=== PATIENT | male | born 1985 | race Caucasian/White ===

== ENCOUNTER 2019-05-18 16:46 | Emergency (ER) | payer OTHER, BC, SELFPAY ==
[2019-05-18 16:49] VITALS: BP 129/75; PULSE 95; RESP 18; TEMP 36.7; O2SAT 97
--- NOTE | 2019-05-18 16:51 | ED.GENADUL_ITS ---
Discharge Plan Disposition Patient Disposition: HOME Condition: Fair Discharge Details Chief Complaint: RespSymp Clinical Impression: Pneumonia, Hernia Primary Care Provider: None,None ED Provider: Juliana Persaud Home Meds and New Rx's Prescriptions: New doxycycline hyclate 100 mg capsule 100 mg PO BID Qty: 14 RF: 0 Discharge Instructions Instructions: Doxycycline (By mouth), Pneumonia (ED) Additional Instructions: Encourage hydration. Tylenol and/or Ibuprofen as needed for discomfort. Encourage deep breathing. Please take Doxycycline as prescribed. Even if symptoms improve, please take the entire course. If you develop increased shortness of breath, difficulty breathing, fevers or other new/worsening symptoms please seek care urgently once again. In regard to the swelling on your abdomen, this is most concerning for an inguinal hernia, you will need follow up with general surgery. If you develop increased/persistent pain, redness, fevers or other new/worsening symptoms please seek care urgently once again. Our director of career services will call you regarding establishing primary care and referral for general surgery. Medical Decision Making Patient is a 34-year-old male presents today with chief complaint of shortness of breath. States that this is been going on for the past 2 weeks. Reports is worse when he is laying supine or when he sitting down. Symptoms resolve when he is upright and moving. Reports it is on the right side and indicates inferior aspect of his rib cage is area where something is stabbing me when a breathing. He reports he was seen at [facility] emergency department yesterday at which time a chest x-ray was performed and per his report, no acute pathology was noted. Patient is an active smoker and smokes 1/2 packs of cigarettes daily. States that he did have subjective fevers a few days ago. Reports one episode of hemoptysis last week. Has not had any fevers or hemopt ysis since that time. No recent travel. Denies any personal or familial history of coagulopathy. No leg pain. Patient is also endorsing pain in the left side of his groin. States that he has had discomfort in this area, particularly when exerting himself or lifting, for quite some time. However, noted a area of swelling in this area today. No acute change in his pain. Obtain the notes from [facility]. It feels that his discomfort is likely musculoskeletal. Two-view chest x-ray was obtained. Showed the lungs are well-inflated and clear. No pneumothorax or pleural effusion detected. The cardiac silhouette is within normal limits. Normal spinal alignment. No osseous abnormalities detected.. Patient is slightly tachycardic at 95. His lungs are clear on exam. Appears nontoxic. He has no pain with ROM or palpation, does not seem consistent with muscular discomfort. As there has been no real increase in his cough, only brief episode of subjective fevers, symptoms are not really consistent with pneumonia. With hemoptysis and pain, plan for evaluation with a d-dimer as I did consider pulmonary embolism but do find this unlikely given age and risk factors. He had a x-ray yesterday with no acute on normalities, do not feel that reimaging the patient is appropriate at this time. I did encourage smoking cessation. On exam, the swelling he was endorsing on the left side of his groin is consistent with an inguinal hernia. No evidence to suggest incarceration or emergent pathology associated with this. Advised that this may be followed up with general surgery. Patient does not have a primary care and would like to follow-up with general surgery at [facility]. We will asked her director of career services help facilitate follow-up with primary care. D-dimer is elevated at 2211, will move forward with CT for PE. FINDINGS: Pulmonary arteries: Normal. No pulmonary emboli. Aorta: Unremarkable. No aortic aneurysm. No aortic dissection. Lungs: There is a focal air space consolidation in the right lower lobe. Remainder of the lungs are clear. Pleural space: Unremarkable. No pneumothorax. No pleural effusion. Heart: Unremarkable. No cardiomegaly. No pericardial effusion. Lymph nodes: Unremarkable. No enlarged lymph nodes. Bones/joints: Unremarkable. No acute fracture. Soft tissues: Unremarkable. Other findings: The visualized intra-abdominal structures demonstrate no acute findings. IMPRESSION: 1. No evidence of pulmonary emboli. 2. Focal air space consolidation in the right lower lobe favors infectious pneumonia in the appropriate clinical setting. Discussed this finding with the patient. He will be started on Doxycycline, dosing for tonight and tomorrow morning will be given. I advised f/u with PCP for reevaluation. Again, encouraged smoking cessation. He was given strict return precautions. Also discussed worsening symptoms of hernia that should prompt urgent evaluation once again. All of his questions and concerns were addressed, he is in agreement iwth this plan. HPI General Mode of arrival: ambulatory . Date/Time Provider Initiated Documentation: 05/18/19 16:51 . Limitations to Documentation: no limitations . Information obtained by: patient, family ( and daughter) and RN notes reviewed . History of Present Illness 34 year old M presents to the emergency department with the chief complaint of SOB and right lower chest wall pain, described as severe, with intensity rated at 9. Quality is described as aching, and is localized to the chest. Patient reports no radiation. Patient started experiencing this week(s) (2) and it has been constant. Movement improves symptom(s), (upright and walking) Rest worsens symptoms (laying supine) . Patient notes cough (reports chronic smokers cough, has slightly increased and had 1 episode of hemoptysis) and shortness of breath; denies diaphoresis, fever/chills, loss of appetite, nausea/vomiting, rash, syncope and weakness. Patient did receive the following treatments prior to arrival, none Related Data Home Medications Medication Instructions Recorded Confirmed doxycycline hyclate 100 mg PO BID #14 cap 05/18/19 Previous Rx's Medication Instructions Recorded doxycycline hyclate 100 mg PO BID #14 cap 05/18/19 Allergies Allergy/AdvReac Type Severity Reaction Status Date / Time No Known Allergies Allergy Unverified 05/18/19 16:52 Review of Systems Constitutional Constitutional: Reports as per HPI, Denies chills, Denies fever(s), Denies headache(s), Denies lethargy and Denies poor appetite Eyes Eyes: Denies change in vision ENT Ears, Nose, Mouth, and Throat: Denies dizziness and Denies headache(s) Cardiovascular Cardiovascular: Reports as per HPI, Reports chest pain at rest (right sided chest wall pain), Denies chest pain with activity, Denies syncope, Denies pedal edema, Denies edema, Denies leg edema, Denies lightheadedness, Denies radiating jaw, neck or arm pain, Denies palpitations, Reports dyspnea and Denies dyspnea on exertion Respiratory Respiratory: Reports as per HPI, Denies chest congestion, Denies cough, Denies pain on inspiration, Denies pain with cough, Reports dyspnea, Denies dyspnea on exertion and Denies wheezing Gastrointestinal Gastrointestinal: Reports as per HPI, Reports abdominal pain (left groin swelling and discomfort with exertion), Denies diarrhea, Denies nausea and Denies vomiting Genitourinary Genitourinary: Denies system reviewed and no additional complaints, except as docu (denies change in urinary habits), Denies genital pain, Denies flank pain, Denies scrotal swelling, Denies testicular mass and Denies testicular pain Musculoskeletal Musculoskeletal: Reports as per HPI and Denies back pain Integumentary/Breasts Skin/Breast: Reports as per HPI and Denies rash Neurologic Neurologic: Reports as per HPI, Denies dizziness, Denies syncope and Denies headache(s) Endocrine Endocrine: Denies palpitations Allergic/Immunologic Allergic/Immunologic: Denies wheezing [facility] Social History Smoking/Tobacco Use Status: Current every day Drug use: Never Do you feel safe at home: Yes Exam Const General: cooperative, healthy appearing, comfortable, no acute distress and well developed Nutritional Appearance: average body habitus and well nourished Orientation: alert, awake and oriented x3 HENMT Head: normal to inspection Ears: hearing grossly normal bilaterally Mouth: moist mucous membranes Chest Chest: normal inspection of the chest, normal palpation of entire chest wall, no crepitus, no localized rib tenderness and no tenderness Resp Effort & Inspection: normal respiratory effort, able to speak in complete sentences and no respiratory distress Auscultation: clear to auscultation bilaterally, no rales, no rhonchi and no wheezes Cardio Rate: regular rate Rhythm: regular rhythm Heart Sounds: S1 normal and S2 normal GI Inspection: no edema, non-distended and visible herniation (left inguinal area of swelling, soft and reducible) Palpation: soft, no hepatosplenomegaly, not firm, no guarding, not rigid and nontender Auscultation: normal bowel sounds Back/Spine/Pelvis Back: no CVA tenderness Thoracic/Lumbar Spine: thoracic and lumbar spine normal to inspection, thoraco- lumbar ROM normal, No mass, No pain with thoraco-lumbar ROM, No paraspinal tenderness and No thoraco-lumbar ROM limited Skin General skin exam: no rashes or lesions noted Trauma: no lacerations or abrasions Neuro General: alert, awake and oriented x3 Cognition: normal cognition Speech: speech normal Gait: normal gait Extrem General: normal to inspection, normal capillary refill, no pedal edema, no calf tenderness and normal gait Psych Appearance: grossly normal and well kempt Mental Status: mental status grossly normal Speech and Movement: speech and movement normal
[2019-05-18 17:50] LABS: HCT 41.2 % (40.0-50.0); HGB 14.2 g/dL (13.5-17.5); Mean Corp. HGB Concentration 34.5 g/dL (32.0-36.0); Mean Corpuscular Volume 92.8 fL (80-95); Mean Platelet Volume 8.9 fL (8.0-11.0); Platelet Count 395 x1000/uL (130-400); RBC 4.44 m/cumm (4.50-6.00); RBC Distribution Width 12.5 % (11.8-14.1); White Blood Cell Count 7.71 k/cumm (4.4-10.8)
[2019-05-18 18:11] LABS: ALT 56 U/L (16-63); AST 21 U/L (15-37); Albumin 3.8 g/dL (3.4-5.0); Alkaline Phosphatase 75 U/L (46-116); Anion Gap 9.7 mmol/L (3-11); BUN 24 mg/dL (7-18); Bilirubin, Total 0.5 mg/dL (0.2-1.0); CO2 27.3 mmol/L (21.0-32.0); CREATININE 0.88 mg/dL (0.70-1.30); Calcium 9.1 mg/dL (8.5-10.1); Chloride 103 mmol/L (98-107); Glucose 91 mg/dL (70-100); Potassium 3.8 mmol/L (3.5-5.1); Sodium 140 mmol/L (136-145); Total Protein 7.9 g/dL (6.4-8.2)
[2019-05-18 18:15] LABS: D-Dimer 2211 ng/mlFEU (<500)
[2019-05-18] MEDS: Normal Saline 1,000 ML 1000 ML IV (18:53)
[2019-05-18] MEDS: Normal Saline Flush 10 ML SYR IVP (18:53)
[2019-05-18 18:54] LABS: INR 1.1 (0.9-1.1); PTT Activated 29.9 sec (21.0-31.4); Prothrombin Time 11.2 sec (9.3-11.0)
--- NOTE | 2019-05-18 19:19 | DI.CT_ITS ---
EXAM: CT CHEST PE CTA CLINICAL HISTORY: elevated d-dimer, right lower chest wall pain, SOB TECHNIQUE: Post IV contrast during maximum okay opacification of the pulmonary arteries. COMPARISON: No exams were available for comparison FINDINGS: No pulmonary emboli or aortic dissection is seen. The heart size is normal. No adenopathy, pleural or pericardial effusion is seen. There is an area of airspace consolidation seen posteriorly in the right lower lobe near the diaphragm. The remainder of the lung whitman are clear. The visualized po rtions of the upper abdomen are unremarkable. IMPRESSION: Right lower lobe infiltrate. No evidence of pulmonary emboli.
[2019-05-18] MEDS: Omnipaque 350 MG/ML 100 ML BTL IJ (19:38)
--- NOTE | 2019-05-18 19:53 | DI.VRAD_ITS ---
PROCEDURE INFORMATION: Exam: CT Angiography Chest With Contrast Exam date and time: 05/18/2019 6:30 PM Clinical history: 34 years old, male; Shortness of breath and other: RT lower chest pain, elevated d-dimer TECHNIQUE: Imaging protocol: Computed tomographic angiography of the chest with intravenous contrast. 3D rendering: MIP reconstructed images were created and reviewed. Radiation optimization: All CT scans at this facility use at least one of these dose optimization techniques: automated exposure control; mA and/or kV adjustment per patient size (includes targeted exams where dose is matched to clinical indication); or iterative reconstruction. Contrast material: [id number]; Contrast volume: 80 ml; Contrast route: IV RAC 18G; COMPARISON: No relevant prior studies available. FINDINGS: Pulmonary arteries: Normal. No pulmonary emboli. Aorta: Unremarkable. No aortic aneurysm. No aortic dissection. Lungs: There is a focal air space consolidation in the right lower lobe. Remainder of the lungs are clear. Pleural space: Unremarkable. No pneumothorax. No pleural effusion. Heart: Unremarkable. No cardiomegaly. No pericardial effusion. Lymph nodes: Unremarkable. No enlarged lymph nodes. Bones/joints: Unremarkable. No acute fracture. Soft tissues: Unremarkable. Other findings: The visualized intra-abdominal structures demonstrate no acute findings. IMPRESSION: 1. No evidence of pulmonary emboli. 2. Focal air space consolidation in the right lower lobe favors infectious pneumonia in the appropriate clinical setting. Dictated and Authenticated by: Marv Meredith MD. Ordering:SUSY Andrews MD
[2019-05-18 20:22] VITALS: BP 106/74; PULSE 84; RESP 20; TEMP 37.3; O2SAT 98
[2019-05-18] MEDS: Doxycycline Hyclate 100 MG CAP PO ×2 (20:26)
== END 2019-05-18 20:30 | disposition home or self-care (01) ==
PROVIDERS: Emergency Provider Physician Assistant
DX: J18.9 Pneumonia, unspecified organism (principal); K40.90 Unilateral inguinal hernia, without obstruction or gangrene, not specified as recurrent; F17.210 Nicotine dependence, cigarettes, uncomplicated
CPT/HCPCS: 71275; 80053; 85027; 96360; 96361; 99285; 85379; 85610; 85730; 99284; J3490

== ENCOUNTER 2019-06-03 11:10 | Outpatient (CLI) | payer OTHER, BC, SELFPAY ==
--- NOTE | 2019-06-03 10:47 | DI.RAD_ITS ---
EXAM: XR CHEST 2V PA LATERAL CLINICAL HISTORY: still having some intermittent sharp pain, Z87.01, h/o becterial pneumonia,. TECHNIQUE: 2D digital imaging was performed. COMPARISON: CT CHEST PE CTA from 05/18/2019 FINDINGS: LUNGS: Clear. No pleural abnormality seen. HEART: Normal. MEDIASTINUM: Normal. OTHER FINDINGS:Normal. IMPRESSION: No acute pulmonary findings.
== END 2019-06-03 11:30 ==
PROVIDERS: Visit Provider Surgery
DX: Z87.01 Personal history of pneumonia (recurrent) (principal); R07.89 Other chest pain
CPT/HCPCS: 71046

== ENCOUNTER 2019-06-08 07:51 | Day surgery (SDC) | payer OTHER, BC, SELFPAY ==
[2019-06-08] VITALS (8 sets, daily range): BP systolic 80–116; BP diastolic 44–79; PULSE 54–112; RESP 12–18; TEMP 36–36.8; O2SAT 96–100
--- NOTE | 2019-06-08 06:37 | W.PM.OP ---
Date of service: 06/08/19 Time of Service: 09:38 Operative Note Operative Note DATE OF PROCEDURE: 06/08/19 PRE-OP DIAGNOSIS: Left inguinal hernia POST-OP DIAGNOSIS: same PROCEDURE: Left inguinal hernia repair with mesh SURGEON: Mona Lyons SALESPERSON USED CARS: Lilo Stokes ANESTHESIA: GETA and regional PATHOLOGY: none sent COMPLICATIONS: None Patient was transported to: PACU Patient's condition: stable Implants: Medium Bard Mesh Perfix Plug [id number] [id number] LOT [id number] Exp 2021-09-16 Indications: Mr. Dejesus is a pleasant 34 year old male who was seen in the office for a left inguinal hernia which happened at work when lifting some heavy reels of wire. Risks, benefits and complications have been reviewed. Complications include but are not limited to bleeding, infection, injury to vas, vessels and nerves, injury to bowel and adverse reaction to medications. Questions were entertained and answered to their satisfaction and they wished to proceed. Findings: Small indirect inguinal hernia and medium direct hernia Procedure Description: After informed consent was obtained the patient was taken to the operating room and placed in a supine position. Monitors and SCDs were applied and a timeout was done. The patient's name, date of , procedure type, procedure site, allergies to medications, preoperative antibiotic, and DVT prophylaxis were all reviewed. Fire risk was assessed. Next anesthesia did a tap block on the left side under ultrasound guidance. Please see their separate dictation. Once anesthesia was done the abdomen was prepped and draped in a sterile surgical fashion. 1% lidocaine was injected into the dermis in the left lower quadrant. An incision was made with a 10 blade in the left lower quadrant. Dissection was done with cautery through the subcutaneous tissues and Cj's fascia down to the external oblique fascia. The external ring was identified and the external oblique fascia was opened sharply through the external ring. The cut fascia was grasped with hemostats the cord structures were identified and a Jonathon drain was placed around them. The cremasteric muscle was dissected away from the cord structures using both cautery and blunt dissection. A small hernia sac was identified and removed from the cord structures using blunt dissection. The hernia sac was pushed back into the peritoneum. The ilioinguinal nerve was identified and cut. A medium prefix plug was then placed into the indirect defect and sutured in place with 2-0 proline. A medium flat mesh was then attached to the lacunar ligament using a 2-0 Prolene double armed suture. The mesh was secured laterally and medially with a 2-0 Prolene, with a running suture. The tails of the mesh were wrapped around the cord structures effectively cinching down the internal ring. Once the mesh was secured the tissues were irrigated with some normal saline. No bleeding was identified. The external oblique fascia was re-approximated using 2-0 Vicryl running suture. The Cj's fascia was re-approximated using interrupted 3-0 Vicryl. The dermis was reapproximated with a running 4-0 Vicryl. The skin was cleaned and dried and skin affix was applied. The patient was woken up and taken back to recovery in stable condition. There were no immediate complications. Sponge, instrument and needle counts were correct at the end of the case x2.
--- NOTE | 2019-06-08 06:44 | W.PM.DSUDISC ---
Discharge Plan Disposition Patient Disposition: HOME Condition: Good Discharge Details Reason For Visit: [facility] Attending Provider: Mona Lyons Primary Care Provider: None,None Home Meds and New Rx's Prescriptions: New acetaminophen [Tylenol] 325 mg capsule 650 mg PO Q6H PRN (Reason: pain) Qty: 30 RF: 0 ibuprofen 600 mg tablet 600 mg PO Q6H PRN (Reason: pain) Qty: 30 RF: 0 Discharge Instructions Instructions: Open Herniorrhaphy (DC) Additional Instructions: Activity at Home after surgery: 1. Make sure you walk outside at least 4 times per day 2. You should be able to climb a flight of stairs 3. No driving while in pain or taking pain medications 4. No strenuous activity or heavy lifting for 4 weeks (open surgery) Diet, Nutrition, & wound healin. Avoid alcohol until after you are recovered from your surgery 2. Make sure to eat plenty of lean protein (meat, fish, eggs, cottage cheese, beans) 3. Eat a variety of fruits and vegetables. Eat plenty of high fiber foods to avoid constipation. 4. Drink plenty of liquids to stay hydrated and avoid constipation Pain Medications: 1. Alternate Tylenol 650 mg and Ibuprofen 600 mg every 3 hours 2. If a narcotic has been prescribed take as directed only for breakthrough pain For Constipation: 1. Take Milk of Magnesia or MiraLax as needed for constipation Other: 1. You may shower daily. Do not scrub the incisions 2. Do not soak the incisions for 1 week 3. You may alternate ice and heat as needed for pain and swelling Wound Care: 1. Keep the incisions clean and dry Please call our office if you develop: 1. Fevers >101.5 2. Nausea or Vomiting 3. Worsening pain 4. Redness and thick discharge from the wounds If after hours please call the Hospital at and ask to speak to the on-call surgeon Referrals: Mona Lyons MD [ [facility] STAFF PHYSICIAN] - 06/24/19 9:00 am Activity:: No lifting, pulling or pushing >20 lb x 4 weeks Diet:: As Tolerated Discharge Orders Discharge Orders: Discharge Order (Routine); Ordered 06/08/19 Ordered By: Mona Lyons DS: Diagnosis Discharge Diagnosis (1) Left inguinal hernia: Status: Acute
[2019-06-08] MEDS: Lactated Ringers 1,000 ML 80 ML IV ×2 (08:33→10:43)
[2019-06-08] MEDS: Bupivacaine LIPOSOME/PF 133 MG/10 ML VIAL IJ (09:22)
[2019-06-08] MEDS: Bupivacaine 0.5% Pres-Free 30 ML VIAL (09:22)
[2019-06-08] MEDS: ceFAZolin 2 GM/50 ML BAG IVPB (09:30)
[2019-06-08] MEDS: Lidocaine 1% Pres-Free 5 ML VIAL (09:42)
[2019-06-08] MEDS: fentaNYL 100 MCG/2 ML VIAL IVP (10:57)
[2019-06-08] MEDS: Acetaminophen 325 MG TAB 650 MG PO (11:59)
== END 2019-06-08 12:40 | disposition home or self-care (01) ==
LOC: SUR 07:51
PROVIDERS: Visit Provider Surgery
PROC: (CPT 49505; principal; 2019-06-08 09:30)
DX: K40.90 Unilateral inguinal hernia, without obstruction or gangrene, not specified as recurrent (principal); X50.0XXA Overexertion from strenuous movement or load, initial encounter; Y99.0 Civilian activity done for income or pay; G89.18 Other acute postprocedural pain; F17.210 Nicotine dependence, cigarettes, uncomplicated
CPT/HCPCS: 49505; 76942; C1781; J0690; J1100; J1885; J2250; J2405; J3010

== ENCOUNTER 2020-12-06 02:21 | Outpatient (CLI) | payer OTHER, BC, SELFPAY ==
--- NOTE | 2020-12-06 | DI.US_ITS ---
Exam(s) US PAIN CLINIC NEEDLE GUIDANCE EXAM: LT ILIOINGUINAL NEURALGIA, G57.92 COMPARISON: US US OR ANESTHESIA from 06/08/2019 TECHNIQUE: Ultrasound performed using standard protocol. FINDINGS: Ultrasound guidance was performed for therapeutic injection performed by the pain management speciali st. Radiologist was not present for this procedure. IMPRESSION: Ultrasound guidance for left ileo inguinal nerve infiltration. DATA REPOSITORY:
[2020-12-06 11:43] VITALS: BP 104/62; PULSE 87; RESP 14; TEMP 37.1; O2SAT 98
[2020-12-06 12:27] VITALS: PULSE 84; O2SAT 97
[2020-12-06] MEDS: Dexamethasone Sod. Phos./Pres-Free 10 MG/ML VIAL IJ (12:27)
--- NOTE | 2020-12-06 12:27 | PDOC.PAIN_ITS ---
Pain Clinic Procedure Note Procedure Note Procedure Note: ULTRASOUND GUIDED LEFT ILIOINGUINAL NERVE BLOCK Date of service: December 06, 2020 Pre-Procedural Evaluation: Mahamed Dejesus has been referred to the [facility] for an Ultrasound Guided left ilioinguinal nerve block for a chief complaint of left upper thigh and groin pain. DX: Left Ilioinguinal neuralgia Pre-procedure Pain Score: 5/10 Patient was interviewed and the medical record reviewed. There were no medical, pharmacologic, radiographic, or other structural contraindications to preforming an ultrasound guided injection. Risks and expected side effects as well as potential benefits of the procedure were reviewed. The patient consent form was signed and witnessed. Standard time-out procedure was performed. The use of direct ultrasound visualization of the needle (rather than a non- guided injection) was required to increase patient safety by excluding inadvertent intramuscular, intratendinous, or intraneural needle placement and minimizing bleeding by avoiding osteochondral or vascular injury from the needle. Additionally, the increased accuracy of placement may increase clinical effectiveness and will allow higher diagnostic specificity when evaluating effectiveness of this injection. Procedure Description: The patient was placed in thesupine position and automated blood pressure cuff and pulse oximeter applied for monitoring during the procedure and recorded in the medical record. Pre-injection ultrasound scanning of the area of interest was performed using linear transducer, identifying relevant anatomy, landmarks, and neurovascular structures allowing for optimal needle path. The site was then prepared in the usual sterile fashion, using thorough Chlorhexadine preparation of the skin and sterile draping. The same ultrasound transducer was then passed into the sterile field using sterile probe cover and sterile ultrasound gel. The injection target was again visualized. Skin and subcutaneous tissues were anesthetized with 2 mL of 1% Lidocaine. A 21 guage Pajunk ultrasound needle was placed under live ultrasound guidance, using an in-plane approach, to the target area. After visualization of the needle tip at the target area, a mixture of 5 cc of 0.5% Bupivacaine, 5 cc of 1% Lidocaine and 1 cc of Dexamethasone (10mg/cc), totaling 11 mL of injectate was delivered after negative aspiration for blood. Ultrasound images were captured and stored for documentation purposes. Post-procedure Pain Score:0/10 Vital signs were stable throughout the procedure and were as recorded in the docflowsheet by the nursing staff. Follow up plans and appointments were discussed with the patient.Post procedure instruction was given as documented in nursing documentation and having met discharge criteria, they were discharged from the [facility]. COMMENTS: He did very well with the procedure. Efrain Foy DO, MPH Pain Management
[2020-12-06] MEDS: Bupivacaine 0.5% Pres-Free 10 ML VIAL IJ (12:28)
[2020-12-06] MEDS: Lidocaine 1% Pres-Free 5 ML VIAL IJ (12:28)
== END 2020-12-06 02:41 ==
PROVIDERS: PCP Physician Assistant; Visit Provider Preventive Medicine Occupational Medicine
DX: G57.82 Other specified mononeuropathies of left lower limb (principal)
CPT/HCPCS: 64425; 76942

== ENCOUNTER → 2021-02-12 02:46 | Outpatient (CLI) | payer BC, SELFPAY ==
--- NOTE | 2021-02-12 08:30 | DI.MRI_ITS ---
Exam(s) MR LUMBAR SPINE WO EXAM: MR LUMBAR SPINE WO CLINICAL HISTORY: R/O Left Lumbar Radiculopathy,m54.15, back pain. TECHNIQUE: Multiplanar multisequence MRI of the Lumbar spine was performed. COMPARISON: No exams were available for comparison FINDINGS: Bones: The last intervertebral disc space is designated the L5/S1 level for the numbering purpose of this examination. The vertebral body heights are well maintained. Alignment is satisfactory. The si gnal characteristics are unremarkable. Cord: The conus tip ends at the T12 level. It is of normal size and signal intensity. T12-L1: No disc herniations or bulges are present. No central spinal canal or neural foraminal stenos is. L1-2: No disc herniations or bulges are present. No central spinal canal or neural foraminal stenosis . L2-3: No disc herniations or bulges are present. No central spinal canal or neural foraminal stenosis . L3-4: No disc herniations or bulges are present. No central spinal canal or neural foraminal stenosis . L4-5: There is mild disc desiccation and a small central disc herniation. No central spinal canal or neural foraminal stenosis. L5-S1: There is mild disc desiccation and a small central disc herniation. No central spinal canal o r neural foraminal stenosis. Soft tissues: The visualized SI joints and sacrum are well maintained. The paraspinal soft tissues ar e unremarkable. IMPRESSION: Small central disc herniations at L4-5 and L5-S1. No central spinal canal or neural foraminal stenos is. DATA REPOSITORY:
== END ==
PROVIDERS: PCP Physician Assistant; Visit Provider Nurse Practitioner Family
DX: M51.17 Intervertebral disc disorders with radiculopathy, lumbosacral region (principal); M54.15 Radiculopathy, thoracolumbar region
CPT/HCPCS: 72148